=== PATIENT | male | born 1960 ===

== ENCOUNTER 2019-05-06 13:58 | Emergency (ER) | payer BC ==
[~2019-05-06] VITALS: Ht 172.7 cm; Wt 90.7 kg
[~2019-05-06 13:58] MED LIST: ATEN25; ATOR10 PO; CARV6.25; HYDHCL25 PO; PENVK500 PO; PRED10 PO; PRED20 PO; SUMA25 PO; VERA240ERB; ZOLM2.5
[2019-05-06] MEDS ORDERED: ALBU90OI INH (15:54)
[2019-05-06] MEDS ORDERED: GUAIFEN-CODEINE10 ML PO (15:54)
[2019-05-06] MEDS ORDERED: Zithromax250 MG PO (15:55)
== END 2019-05-06 16:08 | disposition home or self-care (01) ==
LOC: ER 13:58
DX: J18.9 Pneumonia, unspecified organism (principal); I10 Essential (primary) hypertension; E78.5 Hyperlipidemia, unspecified; Z79.899 Other long term (current) drug therapy
CPT/HCPCS: 71046; 94640; 99283-25; J0780; J1100; J1200; J1885